=== PATIENT | male | born 1980 | race Two or more races ===

== ENCOUNTER 2022-10-04 20:05 | Emergency (ER) | payer OTHER ==
[~2022-10-04] VITALS: Ht 182.9 cm; Wt 79.4 kg
--- NOTE | 2022-10-04 20:23 | NUR ---
SE RECIBE PACIENTE EN AMBULANCIA EL MISMO SE ENCUENTRA ALERTA Y ORIENTADO X3, PARAMEDICO REFIEREN QUE FUERON ACTIVADOS POR RESPUESTA RAPIDA POR ALEJANDRA SOBREDOSIS, SE MONITOREAN S/V Y SE UBICA PACIENTE.
--- NOTE | 2022-10-04 21:26 | NUR ---
PTE EVALUADO POR EL DR WHITEHEAD QUIEN ORDENA EL TX. SE ORIENTA SOBRE EL TX ORDENADO, LO CUAL REFIERE ENTENDER LA FAMILIAR. SE REALIZAN PRUEBAS DE LABORATORIO Y SE ADMINISTRAN MEDICAMENTOS VINNY ORDEN MEDICA Y SIGUIENDO MEDIDAS ASEPTICAS.
--- NOTE | 2022-10-04 23:33 | NUR ---
10:16PM FAMILIAR DE PTE (ESPOSA) INDICA QUE OBSERVA A PTE CON DIFICULTAD RESPIRATORIA Y "MARCELINO" AL MOMENTO DE LLEGAR DONDE PTE SE ENCUENTRA EL MISMO SE OBSERVA CIANOTICO Y SIN RESPUESTA A ESTIMULO VERBAL O TACTIL, SI REACCIONA AL DOLOR. AL MOMENTO PRESENTA PULSO. SE NOTIFICA A MS María WOLF PARA ACTIVAR CALVE FREDDY. DR WHITEHEAD EVALUA PTE Y SE INICIAN VENTILACIONES MANUALES. 10:19PM SE ADMINISTRA NARCAN 0.4MG VINNY ORDEN MEDICA Y SIGUIENDO MEDIDAS ASEPTICAS. SE CANALIZA PTE EN MANO LT ANGIO #18, PTENTE Y DUONG DE EDEMA O ERITEMA Y SE ADMINISTRA 0.9% NSS @FULL DRIP, VINNY ORDEN MEDICA. SE CONTINUAN CON VENTILACIONES MANUALES POR DR WHITEHEAD Y DR Isac MCKNIGHT. 10:20PM PTE REACCIONA, SE ENCUENTRA DESORIENTADO, TRATANDO DE REMOVER E INTERRUMPI EL TRATAMIENTO MEDICO. SE RESTRINGE EL MISMO VINNY ORDEN EMDICA EN AMBAS EXTREMIDADES SUPERIORES, PTE TOLERA LAS MISMAS. AL MOMENTO PTE SATURANDO 96%. PERSONAL DE TERAPIA RESPIRATORIA MS EM COLOCA NON REBREATHING MASK AL 100%. 10;25PM MS DE LEÓN COLOCA INFANTE VINNY ORDEN EMDICA Y SIGUIENDO MEDIDAS ASEPTICAS Y ESTERILES, PTE TOLERA PROCEDIMIENTO, CON EGRESO APROXIMADO DE 400ML COLOR AMARILLO ISAAC. 10:30PM SE MIDEN S/V A PTE AL MOMENTO B/P-147/90, P-122, RR-19, SATURANDO 100%. SE MANTIENE BAJO OBSERVACION, CONECTADO A MONITOR CARDIACO Y OXIMETRIA DE PULSO. 10:45PM SE TRANFIERE PTE AL AREA DE CHEST PAIN UNIT CAMA#16, CON BARANDAS ELEVADAS POR PRECAUCION. SE CONECTA A MONITOR CARDIACO Y OXIMETRIA DE PULSO. 11:00PM SE ENTREGA PTE A PERSONAL DE PROXIMO TURNO. PENDIENTE RESULTADOS DE LABORATORIO Y CONSULTA CON MEDICINA INTERNA.
== END 2022-10-05 20:55 | disposition left against medical advice (07) ==
LOC: ER 20:05 → ICU-2 10-05 06:24 → ER 10-05 06:24 → MEDI 10-05 06:24 → SEC-K 10-05 14:46 → ICU-2 10-05 14:46 → SEC-K 10-05 16:13 → MEDI 10-05 16:13 → ER 10-05 20:55 → MEDI 10-05 20:55
DX: T40.714A Poisoning by cannabis, undetermined, initial encounter (principal); Y92.89 Other specified places as the place of occurrence of the external cause; R11.0 Nausea; R53.1 Weakness; R53.81 Other malaise; R06.02 Shortness of breath; D72.828 Other elevated white blood cell count; I21.4 Non-ST elevation (NSTEMI) myocardial infarction; N17.8 Other acute kidney failure; F41.8 Other specified anxiety disorders; Z20.822 Contact with and (suspected) exposure to COVID-19